=== PATIENT | female | born 1990 | race Hispanic/Latino ===

== ENCOUNTER 2024-07-17 11:57 | Emergency (ER) | payer SELFPAY ==
[2024-07-17 12:00] VITALS: BP 133/62
--- NOTE | 2024-07-17 13:58 | ED.GENMED ---
History of Present Illness
General
Chief Complaint: Fall
Source: patient
Time Seen by Provider: 07/17/24 13:44
History of Present Illness
History of Present Illness:
34yoF with no significant past medical history presenting for evaluation after a fall around 11am this morning. Patient is [place] speaking and history is obtained with the assistance of an writing manager. Patient was at work and she was standing on a
ladder when she lost her footing and fell onto her right mid back region. No head strike or LOC. Patient is presenting with right back and rib pain. She is having some pain with breathing but denies shortness of breath. No abdominal pain, headache,
neck pain. She is not on any blood thinners.
Phy Exam
General Physical Exam
General Presentation: well appearing and no apparent distress
General age: appears stated age
General Skin: warm and dry
General Habitus: normal
General Mental: alert
ENT Exam
ENT Exam: normocephalic
Additional ENT: No cervical spine tenderness
Pulmonary Exam
Pulmonary Exam: lungs clear, no respiratory distress, no rales, no crackles and no rhonchi
Gastrointestinal Exam
Gastrointestinal Exam: non tender, soft and non distended
Neurological Exam
Neurological Exam: alert
[place] Coma Scale
Eye Opening: Spontaneous
Verbal Response: Oriented
Motor Response: Obeys Commands
GCS Total Score: 15
Musculoskeletal Exam
Musculoskeletal Exam: other (Abrasions/developing ecchymosis noted to the R flank. +Tenderness to R flank and posterior/lateral ribcage. )
Skin Exam
Skin Exam: normal color and warm/dry
Psychiatric Exam
Psychiatric Exam: normal mood/affect
Course
Orders/Labs/Results
Orders:
Orders
07/17/24 12:07
Ribs, Right 3 View W/PA Chest [CR Ribs-right 3 Vw W/pa Chest*] Urgent
Comment:
Reason For Exam: right rib pain after a fall
07/17/24 13:57
CR Lumbar Spine Comp Min 4 Vw* Urgent
Comment:
Reason For Exam: low back pain, fall
07/17/24 15:12
Acetaminophen [Tylenol] 1,000 mg PO NOW STA
Lidocaine [Lidocaine 4% Patch] 1 patch TOPICAL ONCE ONE
Apply Lidocaine patch(s) to:: R flank
07/17/24 15:31
Acetaminophen [Tylenol] 500 mg .ROUTE .STK-MED ONE
Vital Signs
Initial and Last Documented VS:
Initial Vital Signs
Temp Pulse Resp BP Pulse Ox
97.8 F 66 20 133/62 99
07/17/24 12:00 07/17/24 12:00 07/17/24 12:00 07/17/24 12:00 07/17/24 12:00
Last Documented Vital Signs
Temp Pulse Resp BP Pulse Ox
97.8 F 66 20 133/62 99
07/17/24 12:00 07/17/24 12:00 07/17/24 12:00 07/17/24 12:00 07/17/24 12:00
MDM/Problems Addressed
Differential Diagnosis Includes:
34yoF here with R back and rib pain after a fall off a ladder this morning. Abrasions noted to the R flank. No head injury or LOC. No blood thinners. VSS. She is well appearing in no distress. There is reproducible R back/ rib tenderness on exam. No
crepitus. Bilateral breath sounds equal. Differential diagnosis includes but is not limited to: Rib contusion, abrasions, rib fracture, pneumothorax
Initial ED plan: Rib series x-rays obtained in triage are negative for fractures. Will obtain lumbar spine x-rays.
*Critical Care Note
Total Time (30-74mins, 75-104mins- exclusive of procedures): Not Applicable
Update Note
Update Note:
Lumbar spine x-rays also negative. Patient stable for discharge. Supportive care discussed including ice, lidocaine patches, and Tylenol/ibuprofen. Advised follow-up with occupational health as this occurred at work. ED return precautions
discussed. She was discharged in stable condition.
ED Attending Note
-
Portions of this chart may have been created with voice recognition software.� Occasional wrong word or��sound alike� substitutions may have occurred due to the inherent limitations of voice recognition software.
Discharge Plan
Departure
Patient Disposition: Home (Routine Discharge)
Date of Disposition: 07/17/24
Time of Disposition: 15:12
Patient with high blood pressure during this ER visit?: No
Discharge Problem:
Fall from ladder, Contusion of rib on right side
Instructions: Contusion
Referrals:
UNKNOWN - PT DOES,NOT KNOW [Family Provider] -
Stand Alone Forms: Return to Work
Activity Restrictions/Additional Instructions:
Apply ice to affected area. Use lidocaine patches daily (12 hours on, 12 hours off). Take Tylenol and ibuprofen as needed for pain.
Please follow-up with occupational medicine and your family doctor. Return to the ER with any new or worsening symptoms.
Interventions
Interventions:
*Risk Screen - Suicide Last Done: 07/17/24 12:06
*Neglect/Abuse Screening Last Done: 07/17/24 12:06
*Nursing Disposition Last Done: 07/17/24 15:45
ED-Musculoskeletal Assessment Last Done: 07/17/24 15:35
ED- Neurological Assessment Last Done: 07/17/24 15:35
ED-Skin Assessment Last Done: 07/17/24 15:35
Discharge Date and Time
Discharge Date/Time: 07/17/24 15:46
Print Language: CZECH
[2024-07-17] MEDS: TYLENOL 1000 MG PO (15:30)
[2024-07-17] MEDS: LIDOCAINE 4% PATCH 1 PATCH TOPICAL (15:30)
== END 2024-07-17 15:46 | disposition home or self-care (01) ==
LOC: EMR 11:57
PROVIDERS: EMERGENCY PHYSICIAN Emergency Medicine
DX: S20.211A Contusion of right front wall of thorax, initial encounter (principal); W11.XXXA Fall on and from ladder, initial encounter
CPT/HCPCS: 99283; 71101; 72110